=== PATIENT | male | born 1930 | race Caucasian/White ===

== ENCOUNTER 2017-04-20 12:00 | Inpatient (IN) | payer MEDICARE, BC ==
--- NOTE | 2017-04-20 12:27 | Emergency Department Record ---
History of Present Illness - General Chief Complaint: Shortness of breath Time Seen by Provider: 04/20/17 12:19 Source: Patient Mode of Arrival: Wheelchair Limitations: No limitations - History of Present Illness Initial Comments: The patient is here due to a 3 day hx of cough, SOB, and increased leg swelling. He denies any CP, back pain, or WILEY. The patient did fall 3 days ago at home in the bathroom and was unable to get up. He denies any head injury or LOC. Per family he has been more winded recently and having more difficulty walking. The family also noticed some bed sores 3 days ago. MD Complaint: Cough, Shortness of breath Onset/Timin -: Days(s), Unknown Improves With: Nothing Worsens With: Nothing Known History Of: Asthma, Congestive heart failure Associated Symptoms: Cough Treatments Prior to Arrival: None - Related Data Home Oxygen Therapy: No Home Medications Medication Instructions Recorded Confirmed Last Taken Amlodipine Besylate [Norvasc] 5 mg PO QAM 04/20/17 04/20/17 Unknown Citalopram Hydrobromide [Celexa] 1 mg PO QAM 04/20/17 04/20/17 Unknown Furosemide [Lasix] 20 mg PO BID 04/20/17 04/20/17 Unknown Glipizide 10 mg PO QAM 04/20/17 04/20/17 Unknown Losartan Potassium 50 mg PO DAILY 04/20/17 04/20/17 Unknown Metformin HCl 500 mg PO DAILY 04/20/17 04/20/17 Unknown Multivitamin [Multiple Vitamins] 1 each PO QAM 04/20/17 04/20/17 Unknown Potassium Chloride 10 meq PO BID 04/20/17 04/20/17 Unknown Terazosin HCl 5 mg PO DAILY 04/20/17 04/20/17 Unknown Warfarin Sodium [Coumadin] 5 mg PO DAILY 04/20/17 04/20/17 Unknown Allergies Allergy/AdvReac Type Severity Reaction Status Date / Time NO KNOWN DRUG ALLERGY Allergy no Uncoded 04/20/17 12:21 allergies Travel Screening - Travel/Exposure Within Last 30 Days Have you traveled within the last 30 days?: No Review of Systems Constitutional: Denies: Chills, Fever Eyes: Denies: Eye discharge ENT: Reports: Congestion Respiratory: Reports: Cough, Dyspnea Cardiovascular: Denies: Chest pain Gastrointestinal: Denies: Abdominal pain Genitourinary: Denies: Dysuria Musculoskeletal: Denies: Arthralgia Past Medical History - SOCIAL HISTORY Smoking Status: Never smoker Alcohol Use: None Drug Use: None - RESPIRATORY Hx Respiratory Disorders: Yes Hx Asthma: Yes - CARDIOVASCULAR Hx Cardio Disorders: Yes Hx CHF: Yes Hx Edema: Yes Hx Hypertension: Yes Comment:: afib - NEURO Hx Neuro Disorders: No - GI Hx GI Disorders: No - Hx Genitourinary Disorders: No - ENDOCRINE Hx Endocrine Disorders: Yes Hx Diabetes: Yes - MUSCULOSKELETAL Hx Musculoskeletal Disorders: No - PSYCH Hx Psych Problems: No - HEMATOLOGY/ONCOLOGY Hx Hematology/Oncology Disorders: No Family Medical History Any Significant Family History?: No Physical Exam - General General Appearance: Alert, Cooperative, No acute distress - Head Head exam: Atraumatic, Normocephalic, Normal inspection - Eye Eye exam: Normal appearance, PERRL - ENT Throat exam: Normal inspection. negative: Tonsillar erythema, Tonsillar exudate - Neck Neck exam: Normal inspection, Full ROM. negative: Tenderness - Respiratory Respiratory exam: Rhonchi (at the bases.). negative: Normal lung sounds bilaterally, Accessory muscle use, Respiratory distress - Cardiovascular Cardiovascular Exam: Normal heart sounds, Irregular rhythm. negative: Regular rate, Normal rhythm, Systolic murmur - GI/Abdominal GI/Abdominal exam: Soft, Normal bowel sounds. negative: Tenderness - Extremities Extremities exam: Pedal edema (3+ bilaterally.). negative: Normal inspection - Neurological Neurological exam: Alert. negative: Motor sensory deficit Course Vital Signs 04/20/17 12:16 Temperature 98.0 F Pulse Rate 85 Respiratory 22 Rate Blood Pressure 130/87 Pulse Ox 95 - Reevaluation(s) Reevaluation #1: The patient is doing well at this time. He denies any pain or discomfort. I did explain to him that he appears to be in CHF and that we do recommend hospital admission. The patient agrees to the plan. 04/20/17 13:51 Medical Decision Making - Data Complexity MDM Data: Labs Ordered and/or Reviewed, X-Ray Ordered and/or Reviewed, EKG Ordered and/or Reviewed - Lab Data Result diagrams: 04/20/17 12:50 04/20/17 12:50 - EKG Data -: EKG Interpreted by Me (Afib at 80's. Neg for acute ST-T changes.) - Radiology Data Radiology results: Report reviewed (CXR: CMG, possible CHF vs infiltrate. Head CT: Neg for any acute changes.) Disposition Disposition: Admit Clinical Impression: Congestive heart failure Qualifiers: Congestive heart failure type: unspecified congestive heart failure type Congestive heart failure chronicity: unspecified congestive heart failure chronicity Qualified Code(s): I50.9 - Heart failure, unspecified Disposition: Still a Patient at [facility] Decision to Admit: Admit from ER Decision to Admit Date: 04/20/17 Decision to Admit Time: 14:12 Accepting Physician: Mak Time Discussed w/Accepting Physician: 14:12 Condition: (2) Stable Time of Disposition: 14:12 Quality - Quality Measures Quality Measures: N/A - Blood Pressure Screening View Details: Yes Does Patient Have Any of the Following: No Blood Pressure Classification: Pre-Hypertensive BP Reading Systolic Measurement: 130 Diastolic Measurement: 87 Screening for High Blood Pressure: < Pre-Hypertensive BP, F/U Documented > [ [id number]] Pre-Hypertensive Follow-up Interventions: Referral to alternative/primary care provider.
[2017-04-20 12:54] LABS: BASO % 0.3 % (0-6); EOS % 0.2 % (0-6); GRAN % 81.4 % (47-80); HEMATOCRIT 34.4 % (42.0-52.0); HEMOGLOBIN 10.9 gm/dl (14.0-18.0); LYMPH % 7.6 % (16-45); MEAN CELL VOLUME 102.1 fl (81-97); MEAN CORPUSCULAR HEMOGLOBIN 32.3 pg (27-33); MEAN CORPUSCULAR HGB CONC 31.7 g/dl (32-36); MEAN PLATELET VOLUME 9.5 fl (7.4-10.4); MONO % 10.5 % (0-9); PLATELET COUNT 264 K/uL (130-400); RED BLOOD COUNT 3.37 M/uL (4.40-5.70); RED CELL DISTRIBUTION WIDTH 13.1 % (11.5-14.5); WHITE BLOOD COUNT W/O DIFF 11.4 K/uL (4.2-12.2)
[2017-04-20 13:06] LABS: INR 2.2; PARTIAL THROMBOPLASTIN TIME 42.6 SECONDS (24.5-39.1)
[2017-04-20 13:10] LABS: CREATININE 1.6 mg/dL (0.7-1.2)
[2017-04-20 13:18] LABS: CKMB 5.6 ng/mL (<6.73)
[2017-04-20] MEDS ORDERED: FUROSEMIDE IV 40MG/4ML VIAL IVP ONE (13:29)
[2017-04-20] MEDS ORDERED: CEFTRIAXONE SODIUM 1 GM in 0.9 % SODIUM CHLORIDE 100ML 100 ML IVPB ONE (14:11)
[2017-04-20 14:49] LABS: URINE APPEARANCE CLEAR; URINE BILIRUBIN NEGATIVE (NEGATIVE); URINE BLOOD TRACE-L (NEGATIVE); URINE COLOR YELLOW; URINE GLUCOSE (UA) NEGATIVE (NEGATIVE); URINE KETONE NEGATIVE (NEGATIVE); URINE LEUKOCYTE ESTERASE NEGATIVE (NEGATIVE); URINE NITRITE NEGATIVE (NEGATIVE); URINE PROTEIN NEGATIVE (NEGATIVE); URINE UROBILINOGEN 0.2 E.U./dL (0.20 - 1.00)
[2017-04-20 14:59] LABS: URINE EPITHELIAL CELLS NONE SEEN (FEW); URINE RBC RARE (NONE SEEN); URINE WBC NONE SEEN (0-2/hpf)
--- NOTE | 2017-04-20 16:12 | History & Physical ---
History of Present Illness - Date of Service Date of Service for History & Physical: 04/20/17 - History of Present Illness History of Present Illness: Mr. Metz is an 86 y/o male with history of heart failure, atrial fibrillation, rate controlled and diabetes mellitus who comes in after being found to be severely edematous and having increasing shortness of breath over the past several days. The patient lives alone and is reportedly sitting in his chair most of the day and has not been very compliant with his medication regimen. He is had a fall in his bathroom a few days ago injuring his toes but had no other injury. The patient has a home visiting nurse who assists him with some of his daily activities and he gets daily delivery from [employer].The patient denies chest pain, cough, fever, chills or headache. Travel Screening - Travel/Exposure Within Last 30 Days Have you traveled within the last 30 days?: No Review of Systems Constitutional: Denies: Chills, Fever Eyes: Denies: Eye discharge ENT: Reports: Congestion Respiratory: Reports: Cough, Dyspnea Cardiovascular: Denies: Chest pain Gastrointestinal: Denies: Abdominal pain Genitourinary: Denies: Dysuria Musculoskeletal: Denies: Arthralgia Past Medical History - SOCIAL HISTORY Smoking Status: Never smoker Alcohol Use: None Drug Use: None - RESPIRATORY Hx Respiratory Disorders: Yes Hx Asthma: Yes - CARDIOVASCULAR Hx Cardio Disorders: Yes Hx CHF: Yes Hx Edema: Yes Hx Hypertension: Yes Comment:: afib - NEURO Hx Neuro Disorders: No - GI Hx GI Disorders: No - Hx Genitourinary Disorders: No - ENDOCRINE Hx Endocrine Disorders: Yes Hx Diabetes: Yes - MUSCULOSKELETAL Hx Musculoskeletal Disorders: No - PSYCH Hx Psych Problems: No - HEMATOLOGY/ONCOLOGY Hx Hematology/Oncology Disorders: No Family Medical History Any Significant Family History?: No H&P Meds/Allergies - Allergies Allergies: Allergies Allergy/AdvReac Type Severity Reaction Status Date / Time NO KNOWN DRUG ALLERGY Allergy no Uncoded 04/20/17 12:21 allergies - Home Medications Home Medications Medication Instructions Recorded Confirmed Last Taken Amlodipine Besylate [Norvasc] 5 mg PO QAM 04/20/17 04/20/17 Unknown Citalopram Hydrobromide [Celexa] 1 mg PO QAM 04/20/17 04/20/17 Unknown Furosemide [Lasix] 20 mg PO BID 04/20/17 04/20/17 Unknown Glipizide 10 mg PO QAM 04/20/17 04/20/17 Unknown Losartan Potassium 50 mg PO DAILY 04/20/17 04/20/17 Unknown Metformin HCl 500 mg PO DAILY 04/20/17 04/20/17 Unknown Multivitamin [Multiple Vitamins] 1 each PO QAM 04/20/17 04/20/17 Unknown Potassium Chloride 10 meq PO BID 04/20/17 04/20/17 Unknown Terazosin HCl 5 mg PO DAILY 04/20/17 04/20/17 Unknown Warfarin Sodium [Coumadin] 5 mg PO DAILY 04/20/17 04/20/17 Unknown Physical Exam - General General Appearance: Alert, Cooperative, No acute distress Limitations: No limitations - Head Head exam: Atraumatic, Normocephalic, Normal inspection - Eye Eye exam: Normal appearance, PERRL - ENT Throat exam: Normal inspection. negative: Tonsillar erythema, Tonsillar exudate - Neck Neck exam: Normal inspection, Full ROM. negative: Tenderness - Respiratory Respiratory exam: Rhonchi (at the bases.). negative: Normal lung sounds bilaterally, Accessory muscle use, Respiratory distress - Cardiovascular Cardiovascular Exam: Normal heart sounds, Irregular rhythm. negative: Regular rate, Normal rhythm, Systolic murmur Peripheral Pulses: 0: Dorsalis Pedis (R), Dorsalis Pedis (L), 2+: Radial (R), Radial (L) - GI/Abdominal GI/Abdominal exam: Soft, Normal bowel sounds. negative: Tenderness - Extremities Extremities exam: Pedal edema (3+ bilaterally.). negative: Normal inspection - Neurological Neurological exam: Alert, CN II-XII intact, Oriented X3. negative: Motor sensory deficit Results - Labs Result Diagrams: 04/20/17 12:50 04/20/17 12:50 VTE H&P Assessment - Risk for VTE Risk for VTE: Yes Risk Level: High Risk Assessment Date: 04/20/17 Risk Assessment Time: 16:13 VTE Orders Placed or Will Be Placed: Yes Plan - Inpatient Certification Inpatient Certification: Admit to inpatient care: Based on my medical assessment, after consideration of patient's risk factors (age, co-morbidities and patient presenting symptoms and acuity), I expect that this patient will remain in the hospital greater than or equal to two midnights and that the services needed warrant inpatient care because: Patient Risk Factors: Fall Estimated length of stay: 3 days The patient may reasonably be expected to be discharged or transferred to a hospital within 96 hours after admission to [facility]. Services needed: Post hospital care (if known): Cardiac rehab I certify that my determination is in accordance with my understanding of Medicare requirements for reasonable and necessary inpatient services. - Detailed Diagnosis and Plan (1) Edema Current Visit: Yes Status: Acute Base Code: R60.9 - EDEMA, UNSPECIFIED Comment: - bilateral lower ext edema, pitting +3, resulting in debility - Lasix 60mg given in ED, 60mg QD IV, to PO dosing. - elevate legs, and compression stalkings, ambulate with assistance (2) Congestive heart failure Current Visit: Yes Status: Acute Qualifiers: Congestive heart failure type: unspecified congestive heart failure type Congestive heart failure chronicity: unspecified congestive heart failure chronicity Qualified Code(s): I50.9 - Heart failure, unspecified Base Code: I50.9 - HEART FAILURE, UNSPECIFIED Comment: - CXR - shows congestion, no recent 2D echo, EF ? - BNP 3,496, Trop 0.17 trending, fluid restriction, daily I/Os - ECG: a fib - 80-90s, no acute ST-T wave changes, telemetry monitoring, maintain sats > 92% - needs ASA, statin, BB, currently on ARB (3) Atrial fibrillation Current Visit: Yes Status: Acute Base Code: I48.91 - UNSPECIFIED ATRIAL FIBRILLATION Comment: - ECG: a fib w/ vent rate in 80-90s, no acute ST-T wave changes. - not on BB, anticoagulated with Warfarin 5mg daily, pharmacy to dose. - INR therapeutic at 2.2 (4) Diabetes mellitus type 2 in obese Current Visit: Yes Status: Acute Base Code: E11.69 - TYPE 2 DIABETES MELLITUS WITH OTHER SPECIFIED COMPLICATION; E66.9 - OBESITY, UNSPECIFIED Comment: - serum glucose 272 - hold home meds: Glipizide 10mg and Metformin 500mg daily - insulin low dose sliding scale, ACHS, Hba1c, Diabetic diet ordered (5) Hypertension Current Visit: Yes Status: Acute Base Code: I10 - ESSENTIAL (PRIMARY) HYPERTENSION Comment: - BP 124/84 - resume Norvasc 5mg and Losartan 50mg QD (6) Chronic kidney disease Current Visit: Yes Status: Acute Base Code: N18.9 - CHRONIC KIDNEY DISEASE, UNSPECIFIED Comment: - BUN/Cr: 48/1.6, baseline unknown - hold metformin, avoid nephrotoxic agents - recheck labs in the am (7) BPH (benign prostatic hyperplasia) Current Visit: Yes Status: Acute Base Code: N40.0 - BENIGN PROSTATIC HYPERPLASIA WITHOUT LOWER URINRY TRACT SYMP Comment: - resume Terazosin 5mg (8) DVT prophylaxis Current Visit: Yes Status: Acute Base Code: [id number] - Comment: - on therapeutic dosing of Warfarin. (9) Code status needs review Current Visit: Yes Status: Acute Base Code: [id number] - Comment: - will address with the patient and family in the morning. - Disposition - SW required for rehab planning on D/C. PT/OT to follow daily.
[2017-04-20] MEDS ORDERED: ACETAMINOPHEN 500 MG TABLET PO PRN (16:20)
[2017-04-20] MEDS: LOSARTAN POTASSIUM 25 MG TABLET PO SCH (17:30)
[2017-04-20] MEDS: TERAZOSIN HCL 1 MG CAPSULE PO SCH (17:33)
[2017-04-20] MEDS: NOVOLOG FLEXPEN (INSULIN ASPART) 100 UNITS/ML SQ SCH (17:41)
[2017-04-20 21:20] LABS: CKMB 5.2 ng/mL (<6.73)
[2017-04-20] MEDS ORDERED: FLU VAC QS 2017-18 (INPT, 6MO+) 60MCG/0.5ML IM ONE (22:30)
[2017-04-21] MEDS: CEFTRIAXONE SODIUM 1 GM in 0.9 % SODIUM CHLORIDE 100ML 100 ML IVPB SCH ×2 (02:51→15:11)
[2017-04-21 05:20] LABS: CKMB 4.6 ng/mL (<6.73)
[2017-04-21 05:37] LABS: BASO % 0.3 % (0-6); EOS % 0.8 % (0-6); HEMATOCRIT 33.3 % (42.0-52.0); HEMOGLOBIN 10.5 gm/dl (14.0-18.0); LYMPH % 9.7 % (16-45); MEAN CELL VOLUME 102.8 fl (81-97); MEAN CORPUSCULAR HEMOGLOBIN 32.4 pg (27-33); MEAN CORPUSCULAR HGB CONC 31.5 g/dl (32-36); MEAN PLATELET VOLUME 9.6 fl (7.4-10.4); MONO % 11.2 % (0-9); PLATELET COUNT 263 K/uL (130-400); RED BLOOD COUNT 3.24 M/uL (4.40-5.70); RED CELL DISTRIBUTION WIDTH 12.8 % (11.5-14.5); WHITE BLOOD COUNT W/O DIFF 11.6 K/uL (4.2-12.2)
[2017-04-21 06:32] LABS: CREATININE 1.4 mg/dL (0.7-1.2)
--- NOTE | 2017-04-21 07:20 | CT SCAN REPORT ---
EXAM: CT OF THE HEAD WITHOUT CONTRAST HISTORY: FELL ONE DAY AGO. COUMADIN THERAPY. TECHNIQUE: Routine noncontrast CT examination of the head was obtained. Comparison: None. FINDINGS: There is moderate dilatation of the subarachnoid spaces associated with mild ventriculomegaly consistent with generalized atrophy. Mild periventricular and subcortical white matter lucencies are scattered in each cerebral hemisphere symmetrically. These are nonspecific, but likely areas of chronic small vessel ischemia. Benign bilateral basal ganglia calcification is present. No other area of abnormally increased or decreased attenuation is noted throughout the brain substance. No abnormal extraaxial fluid collection nor skull fracture is seen. No cephalohematoma visualized. Post cataract surgery changes are noted on the left. The orbits are otherwise unremarkable. There is mild mucosal thickening and several bilateral ethmoid air cells. The visualized paranasal sinuses and mastoid air cells are otherwise clear. IMPRESSION: 1. GENERALIZED ATROPHY WITH MILD VENTRICULOMEGALY. 2. NO CT EVIDENCE OF ACUTE MAJOR VESSEL INFARCT, INTRACRANIAL HEMORRHAGE, MASS , NOR SKULL FRACTURE. 3. MILD WHITE MATTER LUCENCIES SCATTERED IN EACH CEREBRAL HEMISPHERE CONSISTENT WITH CHRONIC SMALL VESSEL ISCHEMIA. 4. MILD MUCOSAL THICKENING IN MULTIPLE BILATERAL ETHMOID AIR CELLS. JOB NUMBER: [id number] [facility]
--- NOTE | 2017-04-21 07:24 | RADIOLOGY REPORT ---
EXAM: CHEST, TWO VIEWS HISTORY: CONGESTION WITH WHEEZING FOR TWO TO THREE DAYS. TECHNIQUE: Upright AP and lateral views of the chest were obtained. Comparison: None. FINDINGS: The heart projects borderline to mildly enlarged without pulmonary venous hypertension. A calcified granuloma is noted in the right lower lobe. Mixed primarily linear opacities are scattered within the lung bases likely relating to atelectasis or scarring. No lung consolidation, costophrenic angle blunting or pneumothorax. There are degenerative changes scattered within the visualized spine. Minimal patchy air space disease within the lingula is possible. IMPRESSION: 1. PATCHY PREDOMINANTLY LINEAR OPACITIES IN THE LUNG BASES CONSISTENT WITH ATELECTASIS OR SCARRING. 2. 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 3. POSSIBLE MINIMAL PATCHY AIR SPACE DISEASE WITHIN THE LINGULA CONSISTENT WITH ATELECTASIS OR LESS LIKELY INFILTRATE. 4. TORTUOUS ATHEROSCLEROTIC THORACIC AORTA. JOB NUMBER: [id number] [facility]
[2017-04-21] MEDS ORDERED: ENOXAPARIN 40 MG/0.4 ML SYR SQ SCH (10:00)
[2017-04-21] MEDS: NOVOLOG FLEXPEN (INSULIN ASPART) 100 UNITS/ML SQ SCH ×4 (10:18→19:30)
[2017-04-21 10:24] LABS: INR 2.33; PROTHROMBIN TIME (PATIENT) 25.4 SECONDS (9.5-12.1)
--- NOTE | 2017-04-21 10:56 | Physician Progress Note ---
Subjective - Date Date of Physician Progress Note: 04/21/17 - Subjective Subjective Comment: The patient is awake, alert and oriented this morning without complaint. He is is sitting in the chair at bedside. Location: Abdomen Radiation: Non-Radiating Severity scale (1-10): 5 Consistency: Intermittent (when he coughs ) Objective - Vital Signs Vital Signs: Vital Signs - Last 24 Hrs Temp Pulse Pulse Pulse Resp BP BP 04/21/17 09:34 97.2 F L 92 H 20 112/59 04/21/17 06:05 04/21/17 06:00 98.4 F 84 18 137/65 04/21/17 02:00 97.6 F 78 20 121/61 04/20/17 21:34 98.2 F 77 91 H 18 110/57 04/20/17 21:00 81 04/20/17 20:50 79 04/20/17 18:20 97.5 F L 90 18 108/56 04/20/17 17:34 88 16 04/20/17 16:20 97.5 F L 90 18 135/65 04/20/17 16:17 79 20 124/84 Pulse Ox 04/21/17 09:34 96 04/21/17 06:05 98 04/21/17 06:00 98 04/21/17 02:00 96 04/20/17 21:34 97 04/20/17 21:00 04/20/17 20:50 96 04/20/17 18:20 98 04/20/17 17:34 92 L 04/20/17 16:20 98 04/20/17 16:17 99 - General General Appearance: Alert, Cooperative, No acute distress Limitations: No limitations - Head Head exam: Atraumatic, Normocephalic, Normal inspection - Eye Eye exam: Normal appearance, PERRL - ENT Throat exam: Normal inspection. negative: Tonsillar erythema, Tonsillar exudate - Neck Neck exam: Normal inspection, Full ROM. negative: Tenderness - Respiratory Respiratory exam: Rhonchi (at the bases.). negative: Normal lung sounds bilaterally, Accessory muscle use, Respiratory distress - Cardiovascular Cardiovascular Exam: Normal heart sounds, Irregular rhythm. negative: Regular rate, Normal rhythm, Systolic murmur Peripheral Pulses: 0: Dorsalis Pedis (R), Dorsalis Pedis (L), 2+: Radial (R), Radial (L) - GI/Abdominal GI/Abdominal exam: Soft, Normal bowel sounds. negative: Tenderness - Extremities Extremities exam: Pedal edema (3+ bilaterally.). negative: Normal inspection - Neurological Neurological exam: Alert, CN II-XII intact, Oriented X3. negative: Motor sensory deficit - Psychiatric Psychiatric exam: Normal affect, Normal mood - Skin Skin exam: Other (dressing over skin breakdown on sacral/coccyx) Assessment and Plan - Assessment and Plan (1) Edema Current Visit: Yes Status: Acute Base Code: R60.9 - EDEMA, UNSPECIFIED Comment: - bilateral lower ext edema, pitting +3, resulting in debility - Lasix 60mg given in ED, 60mg QD IV, to PO dosing. - elevate legs, and compression stalkings, ambulate with assistance (2) Congestive heart failure Current Visit: Yes Status: Acute Qualifiers: Congestive heart failure type: unspecified congestive heart failure type Congestive heart failure chronicity: unspecified congestive heart failure chronicity Qualified Code(s): I50.9 - Heart failure, unspecified Base Code: I50.9 - HEART FAILURE, UNSPECIFIED Comment: - CXR - shows congestion, no recent 2D echo, EF ? - BNP 3,496, Trop 0.015-->0.017 trending, fluid restriction, daily I/Os - ECG: a fib - 80-90s, no acute ST-T wave changes, telemetry monitoring, maintain sats > 92% - needs ASA, statin, BB, currently on ARB (3) Atrial fibrillation Current Visit: Yes Status: Acute Base Code: I48.91 - UNSPECIFIED ATRIAL FIBRILLATION Comment: - ECG: a fib w/ vent rate in 80-90s, no acute ST-T wave changes. - not on BB, anticoagulated with Warfarin 5mg daily, pharmacy to dose. - INR therapeutic at 2.2 -->2.3 (4) Diabetes mellitus type 2 in obese Current Visit: Yes Status: Acute Base Code: E11.69 - TYPE 2 DIABETES MELLITUS WITH OTHER SPECIFIED COMPLICATION; E66.9 - OBESITY, UNSPECIFIED Comment: - serum glucose 272 -->188 - hold home meds: Glipizide 10mg and Metformin 500mg daily - insulin low dose sliding scale, ACHS, Hba1c, Diabetic diet ordered (5) Hypertension Current Visit: Yes Status: Acute Base Code: I10 - ESSENTIAL (PRIMARY) HYPERTENSION Comment: - BP 124/84 - resume Norvasc 5mg and Losartan 50mg QD (6) Chronic kidney disease Current Visit: Yes Status: Acute Base Code: N18.9 - CHRONIC KIDNEY DISEASE, UNSPECIFIED Comment: - BUN/Cr: 48/1.6, baseline unknown - hold metformin, avoid nephrotoxic agents - recheck labs in the am (7) BPH (benign prostatic hyperplasia) Current Visit: Yes Status: Acute Base Code: N40.0 - BENIGN PROSTATIC HYPERPLASIA WITHOUT LOWER URINRY TRACT SYMP Comment: - resume Terazosin 5mg (8) DVT prophylaxis Current Visit: Yes Status: Acute Base Code: [id number] - Comment: - on therapeutic dosing of Warfarin. (9) Code status needs review Current Visit: Yes Status: Acute Base Code: [id number] - Comment: - will address with the patient and family in the morning. - Disposition Disposition: - SW required for rehab planning on D/C. PT/OT to follow daily. Results - Labs Result Diagrams: 04/21/17 05:00 04/21/17 05:00 Labs Last 24 Hours: Laboratory Results - last 24 hr 04/20/17 04/20/17 04/20/17 16:30 17:27 20:55 WBC RBC Hgb Hct MCV MCH MCHC RDW Plt Count MPV Gran % Lymphocytes % Monocytes % Eosinophils % Basophils % PT INR Sodium Potassium Chloride Carbon Dioxide Anion Gap BUN Creatinine Estimated GFR POC Glucose Cancelled 226 H Random Glucose Hemoglobin A1c Calcium CK-MB (CK-2) 5.2 Troponin T 0.015 H 04/21/17 04/21/17 04/21/17 04:55 05:00 05:00 WBC 11.6 RBC 3.24 L Hgb 10.5 L Hct 33.3 L MCV 102.8 H MCH 32.4 MCHC 31.5 L RDW 12.8 Plt Count 263 MPV 9.6 Gran % 78.0 Lymphocytes % 9.7 L Monocytes % 11.2 H Eosinophils % 0.8 Basophils % 0.3 PT 25.4 H INR 2.33 Sodium Potassium Chloride Carbon Dioxide Anion Gap BUN Creatinine Estimated GFR POC Glucose Random Glucose Hemoglobin A1c Calcium CK-MB (CK-2) 4.6 Troponin T 0.017 H 04/21/17 04/21/17 05:00 05:00 WBC RBC Hgb Hct MCV MCH MCHC RDW Plt Count MPV Gran % Lymphocytes % Monocytes % Eosinophils % Basophils % PT INR Sodium 141 Potassium 4.2 Chloride 102 Carbon Dioxide 26.0 Anion Gap 13.0 BUN 43 H Creatinine 1.4 H Estimated GFR 51 POC Glucose Random Glucose 188 H Hemoglobin A1c 8.90 H Calcium 8.5 L CK-MB (CK-2) Troponin T DVT/PE Assessment - Risk for VTE Risk for VTE: No Risk Level: High Risk Assessment Date: 04/20/17 Risk Assessment Time: 16:13 VTE Orders Placed or Will Be Placed: Yes - Active Medicaitons Current Medications: Current Medications Acetaminophen (Tylenol 500mg Tab) 500 mg PO Q6H PRN PRN Reason: PAIN/TEMP Amlodipine Besylate (Norvasc) [facility]ILYWM [facility] Citalopram Hydrobromide (Celexa) 20 mg PO DAILYWM [facility] Furosemide (Lasix Iv) 60 mg IVP DAILY [facility] Glipizide (Glucotrol) 10 mg PO DAILYWM [facility] Ceftriaxone Sodium 1 gm/ (Sodium Chloride) 100 mls @ 200 mls/hr IVPB Q12H [facility] Stop: 04/26/17 02:31 Last Admin: 04/21/17 02:51 Dose: 200 mls/hr Insulin Aspart (Novolog Flexpen) 1 unit SQ TIDINS [facility] PRN Reason: Protocol Last Admin: 04/21/17 10:18 Dose: 8 unit Losartan Potassium (Cozaar) 50 mg PO 1730 [facility] Last Admin: 04/20/17 17:30 Dose: 50 mg Terazosin HCl (Hytrin) 5 mg PO 1730 [facility] Last Admin: 04/20/17 17:33 Dose: 5 mg Warfarin Sodium (Coumadin) 5 mg PO DAILYWM [facility] AMI Plan - Labs Result Diagrams: 04/21/17 05:00 04/21/17 05:00
[2017-04-21] MEDS: WARFARIN 5 MG TAB PO SCH (11:54)
[2017-04-21] MEDS: CITALOPRAM 20 MG TABLET PO SCH (11:54)
[2017-04-21] MEDS: GLIPIZIDE 5 MG TABLET PO SCH (11:55)
[2017-04-21] MEDS: AMLODIPINE BESYLATE 5MG TAB PO SCH (11:56)
[2017-04-21] MEDS: FUROSEMIDE IV 40MG/4ML VIAL IVP SCH (11:57)
--- NOTE | 2017-04-21 14:55 | Rehab Evaluation ---
Patient Information - Patient Information Diagnosis: CHF Ordered Treatment: PT Evaluate and Treat Status: Initial Evaluation History: Detail (The patient presented to ED with a 3 day hx of shortness of breath and coughing. The patient had fallen 3 days ago in the bathroom and was unable to get up.) Past Medical/Surgical Hx: PAST MEDICAL/SURGICAL HISTORY Past Surgical History Cholecysectomy PMH - Respiratory Hx Respiratory Disorders Yes Hx Asthma Yes PMH - Cardiovascular Hx Cardiovascular Disorders Yes Hx Congestive Heart Failure Yes Hx Edema Yes Hx Hypertension Yes Comment: afib PMH - Neuro Hx Neurological Disorders No PMH - GI Hx Gastrointestinal Disorders No PMH - Hx Genitourinary Disorders No PMH - Endocrine Hx Endocrine Disorders Yes Hx Diabetes Yes PMH - Musculoskeletal Hx Musculoskeletal Disorders No PMH - Psych Hx Psychiatric Problems No PMH - Hematology/Oncology Hx Hematology/Oncology No Disorders Premorbid Status: Detail (According to the patient he was ambulatory with a four wheeled walker and was able to complete all ADL's independently.) Social History: Detail (The patient lives alone in a one story home without steps at the enterance. The patient's bathroome is equipped with a walk in shower with a seat and an elevated toilet seat. No grab bars were present. The patient receives meals on wheels. The patient reports he has a helper come in 2 to 3 times a week to clean. The patient completes his own laundry. The patient has a hospital bed, two four wheeled walkers, a standard cane and a processing mgr.) Precautions: [place], Fall - Time With Patient Total Time Spent With Patient (Min): 30 Treatment Procedures: Detail (Initial Evaluation.) Subjective Information - Subjective Information Per Patient (The patient denied any pain or frequent falls. The patient was insistant on going home and receiving home PT and OT." I'm better in my own home.") Objective Data - Mental Status Patient Orientation: Oriented x3 - Visual Perception Appears within normal limits for therapeutic activities - ROM Not within normal limits (The patient's LE AROM is WFL.) - Strength/Tone Not within normal limits (The patient's bilateral hip flexion is 3-/5, hip abductors, adductors 4-/5, quads and hamstrings 4/4, ankle musculatue 4/5. Refer to OT note for UE strength.) - Transfers Independent (The patient was independent with supine to and from sit transfer.) - Balance Balance Sitting: Fair Balance Standing: Poor (The patient was unable to stand without the support of the walker or a surface. The patient hung onto a grab bar for toileting and with support of forearms when washing hands.) - Gait Detail (The patient ambulated with wheeled walker a distance of 13 feet x 2 with supervision for safety due to forward leaning posture and unsteadiness at times.) - Special Tests Yes (Increased edema was noted bilaterallly in both LE's.) Therapy Assessment - Therapy Assessment Detail (The patient has balance deficits and bilateral LE weakness which is effecting the patient's ability to complete mobility. The patient requires supervision with ambulation for safety. Subacute Rehab to improve functional status, improve LE stength and balance is recommended. The patient however voiced his preference for Home Care OT/PT. If the patient returns to home upon discharge 24 hour supervision is recommended initially to monitor the patient's safety with mobility.) Problem List - Problem List Physical Therapy Problem List: Detail (1) Decreased balance in both sitting and standing 2) Decreased LE strength 3) Decreased ability to complete sustained physical activity 4) Supervision with ambulation with assistive device.) Goals - Goals Physical Therapy Goals: 1) The patient will ambulate independently with use of assistive device a distance of 50 feet plus. 2) Increase LE strength 1/3 muscle grade. 3) Improve balance to Fair level, so the patient is able to complete functional activities without LOB. Prognosis - Prognosis Moderate Plan - Plan Physical Therapy Plan: PT daily M-F for gait training, balance exercises, LE strengthening exercises.
--- NOTE | 2017-04-21 14:57 | Rehab Evaluation ---
Patient Information - Patient Information Diagnosis: CHF, fall Ordered Treatment: OT Evaluate and Treat Status: Initial Evaluation Surgery: No History: Detail (Pt. reported he fell in the bathroom, and his call button didn' t work. His son came to visit and found him on the floor.) Past Medical/Surgical Hx: PAST MEDICAL/SURGICAL HISTORY Past Surgical History Cholecysectomy PMH - Respiratory Hx Respiratory Disorders Yes Hx Asthma Yes PMH - Cardiovascular Hx Cardiovascular Disorders Yes Hx Congestive Heart Failure Yes Hx Edema Yes Hx Hypertension Yes Comment: afib PMH - Neuro Hx Neurological Disorders No PMH - GI Hx Gastrointestinal Disorders No PMH - Hx Genitourinary Disorders No PMH - Endocrine Hx Endocrine Disorders Yes Hx Diabetes Yes PMH - Musculoskeletal Hx Musculoskeletal Disorders No PMH - Psych Hx Psychiatric Problems No PMH - Hematology/Oncology Hx Hematology/Oncology No Disorders Premorbid Status: Detail (Pt. lives at home alone in a single story house with no stairs (including entry) and no basement. Pt. reported being independent with all self-care such as dressing and bathing, and some household responsibilities such as laundry. Pt. receives meals on wheels, and has a lady who comes 2-3x/week to assist with house cleaning. Pt. has hx of CHF with chronic edema in BLE. Pt. reported he has a hospital-style bed in the living room and an easy chair. He sits/sleeps in bed or chair for a few hours, then walks to the bathroom or kitchen or transfers to the other furniture before sitting/sleeping again, etc. Pt. ambulated with a 4WW, and used a population geneticist to parts picker floor level items. Pt. enjoys being outside in the summer, and previously enjoyed camping & gardening. Pt.'s bathroom has a walk-in shower with HH shower head and curtain. Pt. has a shower chair available, but reports standing to bathe (prefers). Pt. reports toilet is standard, but is slightly higher than typical seats. There are no grab bars in the bathroom.) Social History: Detail (Pt.'s adult children visit regularly. (please see premorbid status for more details).) Precautions: [place], Fall, Cardiac (fluid restrictions d/t CHF) - Time With Patient Total Time Spent With Patient (Min): 30 Objective Data - Mental Status Patient Orientation: Oriented x3 - Visual Perception Appears within normal limits for therapeutic activities - ROM Not within normal limits (BUE shd flex approx. 140 degrees, and RUE supination lacks approx. 20 degrees. Pt. reports difficulty with Ervin. shd ext & IR (i.e. reaching back pocket), but was able to demo. WFL. All other BUE WNL.) - Strength/Tone Within normal limits (BUE WNL MMT 5/5.) - Coordination Appears within normal limits for therapeutic activities - Bed Mobility Independent - Transfers Needs Assist (Pt. required min assist sit<>stand from EOB to walker. Pt. SBA from firm chair to walker.) - Balance Balance Sitting: Fair (Pt. required guarding while testing BLE, seated in a firm chair; requires BUE support. Pt. was feaful of falling and had difficulty sitting EOB (soft surface) without BUE support.) Balance Standing: Poor (Pt. was unable to let go of walker with 1 UE while standing. Pt. is fearful of falling. Pt. reports he has had multiple close calls of falling backwards when he lets go of his walker, even with just 1 hand. ) - Sensation Intact (BUE fingertips light touch intact.) - ADL's/IADL's Detail (Pt. was unable to reach lower extremities to don sock. Pt. required SBA during functional mobility from bed to bathroom and standing to use toilet d/t poor standing balance. Pt. SOB with minimal activities. Pt. reports hx of incontinence, and is embarrassed to leave home for fear of accidents, but declined to wear brief. Pt. was left with call light and bedside tray within reach, and educ. was provided on how to use call light.) Therapy Assessment - Therapy Assessment Detail (Recommend [facility] to maximize safety and independence with self care, and to increase activity tolerance. Pt. states he will only participate in home care , and doesn't want to stay longer in hospital or go to [facility]. If pt. d/c home, recommend 24 hour supervision initially, and OT home services. It should be ensured that pt's home call button service is working and pt. is educ. how to use it. Unsure how pt. has been able to safely complete LB dressing and bathing at home. Pt. may benefit from additional educ. regarding prevention of bed sores and movement/staying active.) Problem List - Problem List Occupational Therapy Problem List: Detail (1) Decreased safety with self-care ADL's 2) Decreased independence with self-care ADL's 3) Poor standing balance and fair sitting balance 4) Decreased activity tolerance) Prognosis - Prognosis Moderate Plan - Plan Occupational Therapy Plan: Provide in-pt. OT services 2-4x's/week M- during typical rehab business hours during hospital stay to maximize safety and independence with self-care ADL skills, and improve activity tolerance to be able to complete daily ADL routine.
[2017-04-21] MEDS: TERAZOSIN HCL 1 MG CAPSULE PO SCH (18:09)
[2017-04-21] MEDS: LOSARTAN POTASSIUM 25 MG TABLET PO SCH (18:09)
[2017-04-22] MEDS: CEFTRIAXONE SODIUM 1 GM in 0.9 % SODIUM CHLORIDE 100ML 100 ML IVPB SCH (01:42)
[2017-04-22 08:00] LABS: BASO % 0.3 % (0-6); EOS % 2.5 % (0-6); GRAN % 68.5 % (47-80); HEMATOCRIT 33.7 % (42.0-52.0); HEMOGLOBIN 10.5 gm/dl (14.0-18.0); LYMPH % 15.8 % (16-45); MEAN CELL VOLUME 103.1 fl (81-97); MEAN CORPUSCULAR HEMOGLOBIN 32.1 pg (27-33); MEAN CORPUSCULAR HGB CONC 31.2 g/dl (32-36); MEAN PLATELET VOLUME 8.9 fl (7.4-10.4); MONO % 12.9 % (0-9); PLATELET COUNT 267 K/uL (130-400); RED BLOOD COUNT 3.27 M/uL (4.40-5.70); WHITE BLOOD COUNT W/O DIFF 9.5 K/uL (4.2-12.2)
[2017-04-22 08:12] LABS: CREATININE 1.6 mg/dL (0.7-1.2)
[2017-04-22] MEDS: NOVOLOG FLEXPEN (INSULIN ASPART) 100 UNITS/ML SQ SCH ×3 (09:23→17:33)
[2017-04-22 09:52] LABS: INR 2.9; PROTHROMBIN TIME (PATIENT) 31.7 SECONDS (9.5-12.1)
[2017-04-22] MEDS: FUROSEMIDE IV 40MG/4ML VIAL IVP SCH (10:36)
[2017-04-22] MEDS: CITALOPRAM 20 MG TABLET PO SCH (10:36)
[2017-04-22] MEDS: WARFARIN 5 MG TAB PO SCH (10:37)
[2017-04-22] MEDS: GLIPIZIDE 5 MG TABLET PO SCH (10:37)
[2017-04-22] MEDS: AMLODIPINE BESYLATE 5MG TAB PO SCH (10:38)
[2017-04-22] MEDS: FUROSEMIDE 40 MG TABLET PO SCH (13:13)
--- NOTE | 2017-04-22 14:32 | Physician Progress Note ---
Subjective - Date Date of Physician Progress Note: 04/22/17 - Subjective Subjective Comment: The patient is awake, alert and oriented this morning in bedside chair. He says that he feels like his energy has improved and that he is able to get up and use the restroom with assistance of the walker. Objective - Vital Signs Vital Signs: Vital Signs - Last 24 Hrs Temp Pulse Pulse Pulse Resp BP Pulse Ox 04/22/17 12:00 97.8 F 81 18 124/70 93 L 04/22/17 09:00 86 22 04/22/17 08:00 98.5 F 90 18 119/55 94 L 04/22/17 05:03 76 16 94 L 04/22/17 04:00 92 H 18 123/64 90 L 04/22/17 00:00 98 H 18 91/52 93 L 04/21/17 22:51 84 16 94 L 04/21/17 21:00 18 04/21/17 20:00 97.2 F L 81 18 121/66 97 - General General Appearance: Alert, Cooperative, No acute distress Limitations: No limitations - Head Head exam: Atraumatic, Normocephalic, Normal inspection - Eye Eye exam: Normal appearance, PERRL - ENT Throat exam: Normal inspection. negative: Tonsillar erythema, Tonsillar exudate - Neck Neck exam: Normal inspection, Full ROM. negative: Tenderness - Respiratory Respiratory exam: Rhonchi (at the bases.). negative: Normal lung sounds bilaterally, Accessory muscle use, Respiratory distress - Cardiovascular Cardiovascular Exam: Normal heart sounds, Irregular rhythm. negative: Regular rate, Normal rhythm, Systolic murmur Peripheral Pulses: 0: Dorsalis Pedis (R), Dorsalis Pedis (L), 2+: Radial (R), Radial (L) - GI/Abdominal GI/Abdominal exam: Soft, Normal bowel sounds. negative: Tenderness - Extremities Extremities exam: Pedal edema (3+ bilaterally.). negative: Normal inspection - Neurological Neurological exam: Alert, CN II-XII intact, Oriented X3. negative: Motor sensory deficit - Psychiatric Psychiatric exam: Normal affect, Normal mood - Skin Skin exam: Other (dressing over skin breakdown on sacral/coccyx) Assessment and Plan - Assessment and Plan (1) Edema Current Visit: Yes Status: Acute Base Code: R60.9 - EDEMA, UNSPECIFIED Comment: - bilateral lower ext edema, pitting +3, resulting in debility - improving - Lasix 60mg changedto LAsix 40mg PO QD - elevate legs, ambulate with assistance (2) Congestive heart failure Current Visit: Yes Status: Acute Qualifiers: Congestive heart failure type: unspecified congestive heart failure type Congestive heart failure chronicity: unspecified congestive heart failure chronicity Qualified Code(s): I50.9 - Heart failure, unspecified Base Code: I50.9 - HEART FAILURE, UNSPECIFIED Comment: - CXR - shows congestion, no recent 2D echo, EF ? - BNP 3,496, Trop 0.015-->0.017 trending, fluid restriction, daily I/Os - ECG: a fib - 80-90s, no acute ST-T wave changes, telemetry monitoring, maintain sats > 92% - needs ASA, statin, BB, currently on ARB (3) Atrial fibrillation Current Visit: Yes Status: Acute Base Code: I48.91 - UNSPECIFIED ATRIAL FIBRILLATION Comment: - ECG: a fib w/ vent rate in 80-90s, no acute ST-T wave changes. - not on BB, anticoagulated with Warfarin 5mg daily, pharmacy to dose. - INR therapeutic at 2.2 -->2.3-->2.9 (4) Diabetes mellitus type 2 in obese Current Visit: Yes Status: Acute Base Code: E11.69 - TYPE 2 DIABETES MELLITUS WITH OTHER SPECIFIED COMPLICATION; E66.9 - OBESITY, UNSPECIFIED Comment: - hold home meds: Glipizide 10mg and Metformin 500mg daily - insulin moderate dose sliding scale, ACHS, Hba1c, Diabetic diet ordered (5) Hypertension Current Visit: Yes Status: Acute Base Code: I10 - ESSENTIAL (PRIMARY) HYPERTENSION Comment: - cont Norvasc 5mg and Losartan 50mg QD (6) Chronic kidney disease Current Visit: Yes Status: Acute Base Code: N18.9 - CHRONIC KIDNEY DISEASE, UNSPECIFIED Comment: - BUN/Cr: 48/1.6n --> 1.4-->1.6 stable - hold metformin, avoid nephrotoxic agents - recheck labs in the am (7) BPH (benign prostatic hyperplasia) Current Visit: Yes Status: Acute Base Code: N40.0 - BENIGN PROSTATIC HYPERPLASIA WITHOUT LOWER URINRY TRACT SYMP Comment: - resume Terazosin 5mg (8) DVT prophylaxis Current Visit: Yes Status: Acute Base Code: [id number] - Comment: - on therapeutic dosing of Warfarin. (9) Code status needs review Current Visit: Yes Status: Acute Base Code: [id number] - Comment: - will address with the patient and family in the morning. - Disposition Disposition: - D/C home tomorrow w/ PT/OT at home and nursing care. PT/OT to follow daily. Results - Labs Result Diagrams: 04/22/17 07:55 04/22/17 07:55 Labs Last 24 Hours: Laboratory Results - last 24 hr 04/21/17 04/21/17 04/22/17 17:00 22:52 07:10 WBC RBC Hgb Hct MCV MCH MCHC RDW Plt Count MPV Gran % Lymphocytes % Monocytes % Eosinophils % Basophils % PT 31.7 H INR 2.90 Sodium Potassium Chloride Carbon Dioxide Anion Gap BUN Creatinine Estimated GFR POC Glucose 273 H 171 H Random Glucose Calcium 04/22/17 04/22/17 04/22/17 07:55 07:55 12:00 WBC 9.5 RBC 3.27 L Hgb 10.5 L Hct 33.7 L MCV 103.1 H MCH 32.1 MCHC 31.2 L RDW 13.0 Plt Count 267 MPV 8.9 Gran % 68.5 Lymphocytes % 15.8 L Monocytes % 12.9 H Eosinophils % 2.5 Basophils % 0.3 PT INR Sodium 141 Potassium 4.5 Chloride 102 Carbon Dioxide 29.0 Anion Gap 10.0 BUN 46 H Creatinine 1.6 H Estimated GFR 44 POC Glucose 259 H Random Glucose 175 H Calcium 8.3 L DVT/PE Assessment - Risk for VTE Risk for VTE: No Risk Level: High Risk Assessment Date: 04/20/17 Risk Assessment Time: 16:13 VTE Orders Placed or Will Be Placed: Yes - Active Medicaitons Current Medications: Current Medications Acetaminophen (Tylenol 500mg Tab) 500 mg PO Q6H PRN PRN Reason: PAIN/TEMP Amlodipine Besylate (Norvasc) 5 mg PO DAILYWM [facility] Last Admin: 04/22/17 10:38 Dose: 5 mg Citalopram Hydrobromide (Celexa) 20 mg PO DAILYWM [facility] Last Admin: 04/22/17 10:36 Dose: 20 mg Furosemide (Lasix) 40 mg PO DAILY [facility] Last Admin: 04/22/17 13:13 Dose: 40 mg Glipizide (Glucotrol) 10 mg PO DAILYWM [facility] Last Admin: 04/22/17 10:37 Dose: 10 mg Insulin Aspart (Novolog Flexpen) 1 unit SQ TIDINS [facility] PRN Reason: Protocol Last Admin: 04/22/17 12:09 Dose: 12 unit Losartan Potassium (Cozaar) 50 mg PO 1730 [facility] Last Admin: 04/21/17 18:09 Dose: 50 mg Terazosin HCl (Hytrin) 5 mg PO 1730 [facility] Last Admin: 04/21/17 18:09 Dose: 5 mg Warfarin Sodium (Coumadin) 5 mg PO DAILYWM [facility] Last Admin: 04/22/17 10:37 Dose: 5 mg AMI Plan - Labs Result Diagrams: 04/22/17 07:55 04/22/17 07:55
[2017-04-22] MEDS ORDERED: PNEUM 13-VAL/PF 0.5 ML IM ONE (14:44)
--- NOTE | 2017-04-22 14:44 | Physical Therapy Tx Note ---
Physical Therapy Tx Note - Treatment Note Tolerated: Good Total Time Spent With Patient: 40 Physical Therapy Tx Note: Detail (Pt up in chair upon arrival, awake/alert. Required coaxing to participate in therapy, preferred to "sit here relaxing". Performed 10 reps each B of hip flexion, abduction w/manual resistance, adduction w/pillow, heel slides, long arc quads, heel and toes raises in sitting. Agreed to walk from bedside chair to doorway w/front wheeled walker, and CGA. Consistently winded/short of breath with exercise and with ambulation. Returned to bedside chair. Independent w/sit<>stand transfers. Bedside table placed in front of pt, call light in reach. Nrsg was asked if patient could have fresh water, small cup of ice water provided. Discussed plans for home therapy; pt agreeable, but wants to be able to "get settled; doesn't want to be pushed".) Physical Therapy Problem List: Detail (1) Decreased balance in both sitting and standing 2) Decreased LE strength 3) Decreased ability to complete sustained physical activity 4) Supervision with ambulation with assistive device.) Physical Therapy Goals: 1) The patient will ambulate independently with use of assistive device a distance of 50 feet plus. 2) Increase LE strength 1/3 muscle grade. 3) Improve balance to Fair level, so the patient is able to complete functional activities without LOB. Prognosis: Good Physical Therapy Plan: PT daily M-F for gait training, balance exercises, LE strengthening exercises.
[2017-04-22] MEDS: TERAZOSIN HCL 1 MG CAPSULE PO SCH (17:39)
[2017-04-22] MEDS: LOSARTAN POTASSIUM 25 MG TABLET PO SCH (17:40)
[2017-04-23] MEDS: NOVOLOG FLEXPEN (INSULIN ASPART) 100 UNITS/ML SQ SCH ×3 (02:24→12:27)
[2017-04-23] MEDS: WARFARIN 5 MG TAB PO SCH (08:08)
[2017-04-23] MEDS: AMLODIPINE BESYLATE 5MG TAB PO SCH (08:08)
[2017-04-23] MEDS: CITALOPRAM 20 MG TABLET PO SCH (08:08)
[2017-04-23] MEDS: GLIPIZIDE 5 MG TABLET PO SCH (08:08)
[2017-04-23] MEDS: FUROSEMIDE 40 MG TABLET PO SCH (09:58)
--- NOTE | 2017-04-23 11:09 | Discharge Summary ---
Providers Date of admission: 04/20/17 15:12 Attending physician: Ramon Corado Primary care physician: ASHKAN PLASCENCIA M.D. Physical Exam - Vital Signs Vital Signs: Vital Signs - Last 24 Hrs Temp Pulse Pulse Resp BP Pulse Ox 04/23/17 09:00 20 04/23/17 08:00 97.7 F 93 H 18 115/55 94 L 04/23/17 04:00 97.9 F 83 20 125/59 95 04/23/17 00:00 93 H 20 111/65 94 L 04/22/17 21:19 16 95 04/22/17 21:00 85 04/22/17 20:00 98.0 F 86 20 107/69 93 L 04/22/17 16:00 98.0 F 87 18 138/75 98 04/22/17 12:00 97.8 F 81 18 124/70 93 L - General General Appearance: Alert, Cooperative, No acute distress Limitations: No limitations - Head Head exam: Atraumatic, Normocephalic, Normal inspection - Eye Eye exam: Normal appearance, PERRL - ENT Throat exam: Normal inspection. negative: Tonsillar erythema, Tonsillar exudate - Neck Neck exam: Normal inspection, Full ROM. negative: Tenderness - Respiratory Respiratory exam: Rhonchi (at the bases.). negative: Normal lung sounds bilaterally, Accessory muscle use, Respiratory distress - Cardiovascular Cardiovascular Exam: Normal heart sounds, Irregular rhythm. negative: Regular rate, Normal rhythm, Systolic murmur Peripheral Pulses: 0: Dorsalis Pedis (R), Dorsalis Pedis (L), 2+: Radial (R), Radial (L) - GI/Abdominal GI/Abdominal exam: Soft, Normal bowel sounds. negative: Tenderness - Extremities Extremities exam: Pedal edema (3+ bilaterally.). negative: Normal inspection - Neurological Neurological exam: Alert, CN II-XII intact, Oriented X3. negative: Motor sensory deficit - Psychiatric Psychiatric exam: Normal affect, Normal mood - Skin Skin exam: Other (dressing over skin breakdown on sacral/coccyx) Hospitalization - Hospitalization Admission Diagnosis: 1. Congestive Heart Failure - Problem List/Discharge Diagnosis (1) Edema Current Visit: Yes Status: Acute Base Code: R60.9 - EDEMA, UNSPECIFIED Comment: - bilateral lower ext edema, pitting +3, resulting in debility - improving - Lasix 60mg changedto LAsix 40mg PO QD - elevate legs, ambulate with assistance (2) Congestive heart failure Current Visit: Yes Status: Acute Discharge Diagnosis: Congestive heart failure type: unspecified congestive heart failure type Congestive heart failure chronicity: unspecified congestive heart failure chronicity Qualified Code(s): I50.9 - Heart failure, unspecified Base Code: I50.9 - HEART FAILURE, UNSPECIFIED Comment: - CXR - shows congestion, no recent 2D echo, EF ? - BNP 3,496, Trop 0.015-->0.017 trending, fluid restriction, daily I/Os - ECG: a fib - 80-90s, no acute ST-T wave changes, telemetry monitoring, maintain sats > 92% - needs ASA, statin, BB, currently on ARB (3) Atrial fibrillation Current Visit: Yes Status: Acute Base Code: I48.91 - UNSPECIFIED ATRIAL FIBRILLATION Comment: - ECG: a fib w/ vent rate in 80-90s, no acute ST-T wave changes. - not on BB, anticoagulated with Warfarin 5mg daily, pharmacy to dose. - INR therapeutic at 2.2 -->2.3-->2.9 (4) Diabetes mellitus type 2 in obese Current Visit: Yes Status: Acute Base Code: E11.69 - TYPE 2 DIABETES MELLITUS WITH OTHER SPECIFIED COMPLICATION; E66.9 - OBESITY, UNSPECIFIED Comment: - hold home meds: Glipizide 10mg and Metformin 500mg daily - insulin moderate dose sliding scale, ACHS, Hba1c, Diabetic diet ordered (5) Hypertension Current Visit: Yes Status: Acute Base Code: I10 - ESSENTIAL (PRIMARY) HYPERTENSION Comment: - cont Norvasc 5mg and Losartan 50mg QD (6) Chronic kidney disease Current Visit: Yes Status: Acute Base Code: N18.9 - CHRONIC KIDNEY DISEASE, UNSPECIFIED Comment: - BUN/Cr: 48/1.6n --> 1.4-->1.6 stable - hold metformin, avoid nephrotoxic agents - recheck labs in the am (7) BPH (benign prostatic hyperplasia) Current Visit: Yes Status: Acute Base Code: N40.0 - BENIGN PROSTATIC HYPERPLASIA WITHOUT LOWER URINRY TRACT SYMP Comment: - resume Terazosin 5mg (8) DVT prophylaxis Current Visit: Yes Status: Acute Base Code: [id number] - Comment: - on therapeutic dosing of Warfarin. (9) Code status needs review Current Visit: Yes Status: Acute Base Code: [id number] - Comment: - will address with the patient and family in the morning. - Disposition - D/C home tomorrow w/ PT/OT at home and nursing care. PT/OT to follow daily. - Hospitalization Course Abnormal Labs: Abnormal Lab Results 04/20/17 04/20/17 04/21/17 Range/Units 17:27 20:55 04:55 RBC (4.40-5.70) M/uL Hgb (14.0-18.0) gm/dl Hct (42.0-52.0) % MCV (81-97) fl MCHC (32-36) g/dl Lymphocytes % (16-45) % Monocytes % (0-9) % PT 25.4 H (9.5-12.1) SECONDS BUN (8-23) mg/dL Creatinine (0.7-1.2) mg/dL POC Glucose 226 H (70-110) mg/dL Random Glucose (74-109) mg/dL Hemoglobin A1c (4.0-6.00) % Calcium (8.8-10.2) mg/dL Troponin T 0.015 H (0-0.010) ng/mL 04/21/17 04/21/17 04/21/17 Range/Units 05:00 05:00 05:00 RBC 3.24 L (4.40-5.70) M/uL Hgb 10.5 L (14.0-18.0) gm/dl Hct 33.3 L (42.0-52.0) % MCV 102.8 H (81-97) fl MCHC 31.5 L (32-36) g/dl Lymphocytes % 9.7 L (16-45) % Monocytes % 11.2 H (0-9) % PT (9.5-12.1) SECONDS BUN 43 H (8-23) mg/dL Creatinine 1.4 H (0.7-1.2) mg/dL POC Glucose (70-110) mg/dL Random Glucose 188 H (74-109) mg/dL Hemoglobin A1c (4.0-6.00) % Calcium 8.5 L (8.8-10.2) mg/dL Troponin T 0.017 H (0-0.010) ng/mL 04/21/17 04/21/17 04/21/17 Range/Units 05:00 11:30 17:00 RBC (4.40-5.70) M/uL Hgb (14.0-18.0) gm/dl Hct (42.0-52.0) % MCV (81-97) fl MCHC (32-36) g/dl Lymphocytes % (16-45) % Monocytes % (0-9) % PT (9.5-12.1) SECONDS BUN (8-23) mg/dL Creatinine (0.7-1.2) mg/dL POC Glucose 203 H 273 H (70-110) mg/dL Random Glucose (74-109) mg/dL Hemoglobin A1c 8.90 H (4.0-6.00) % Calcium (8.8-10.2) mg/dL Troponin T (0-0.010) ng/mL 04/21/17 04/22/17 04/22/17 Range/Units 22:52 07:10 07:55 RBC 3.27 L (4.40-5.70) M/uL Hgb 10.5 L (14.0-18.0) gm/dl Hct 33.7 L (42.0-52.0) % MCV 103.1 H (81-97) fl MCHC 31.2 L (32-36) g/dl Lymphocytes % 15.8 L (16-45) % Monocytes % 12.9 H (0-9) % PT 31.7 H (9.5-12.1) SECONDS BUN (8-23) mg/dL Creatinine (0.7-1.2) mg/dL POC Glucose 171 H (70-110) mg/dL Random Glucose (74-109) mg/dL Hemoglobin A1c (4.0-6.00) % Calcium (8.8-10.2) mg/dL Troponin T (0-0.010) ng/mL 04/22/17 04/22/17 04/22/17 Range/Units 07:55 12:00 16:45 RBC (4.40-5.70) M/uL Hgb (14.0-18.0) gm/dl Hct (42.0-52.0) % MCV (81-97) fl MCHC (32-36) g/dl Lymphocytes % (16-45) % Monocytes % (0-9) % PT (9.5-12.1) SECONDS BUN 46 H (8-23) mg/dL Creatinine 1.6 H (0.7-1.2) mg/dL POC Glucose 259 H 143 H (70-110) mg/dL Random Glucose 175 H (74-109) mg/dL Hemoglobin A1c (4.0-6.00) % Calcium 8.3 L (8.8-10.2) mg/dL Troponin T (0-0.010) ng/mL 04/23/17 Range/Units 03:15 RBC (4.40-5.70) M/uL Hgb (14.0-18.0) gm/dl Hct (42.0-52.0) % MCV (81-97) fl MCHC (32-36) g/dl Lymphocytes % (16-45) % Monocytes % (0-9) % PT (9.5-12.1) SECONDS BUN (8-23) mg/dL Creatinine (0.7-1.2) mg/dL POC Glucose 263 H (70-110) mg/dL Random Glucose (74-109) mg/dL Hemoglobin A1c (4.0-6.00) % Calcium (8.8-10.2) mg/dL Troponin T (0-0.010) ng/mL Condition at Discharge: (2) Stable Discharge Medications - Discharge Medications Prescriptions: Furosemide [Lasix] 40 mg PO DAILY #30 tablet Home Medications: Ambulatory Orders Amlodipine Besylate [Norvasc] 5 mg PO QAM 04/20/17 [Last Taken Unknown] Citalopram Hydrobromide [Celexa] 1 mg PO QAM 04/20/17 [Last Taken Unknown] Glipizide 10 mg PO QAM 04/20/17 [Last Taken Unknown] Losartan Potassium 50 mg PO DAILY 04/20/17 [Last Taken Unknown] Metformin HCl 500 mg PO DAILY 04/20/17 [Last Taken Unknown] Multivitamin [Multiple Vitamins] 1 each PO QAM 04/20/17 [Last Taken Unknown] Potassium Chloride 10 meq PO BID 04/20/17 [Last Taken Unknown] Terazosin HCl 5 mg PO DAILY 04/20/17 [Last Taken Unknown] Warfarin Sodium [Coumadin] 5 mg PO DAILY 04/20/17 [Last Taken Unknown] Furosemide [Lasix] 40 mg PO DAILY #30 tablet 04/23/17 [Last Taken Unknown] Discharge Plan - Discharge Instructions Additional Instructions: - Pt has home nursing set up as per . - Follow up in 5-10 at [facility] - Lasix dose changed to 40mg PO daily Quality Measures - Quality Measures Quality Measures: Atrial Fibrillation & Atrial Flutter: Chronic Anticoagulation Therapy, Advance Directives, Documentation of Current Medications in Medical Record, Elder Maltreatment Screen and Follow-Up Plan, Heart Failure, Screening for High Blood Pressure and F/U Documented - Current Medications Quality Measure: Measure #130: Documentation of Current Medications - Blood Pressure Screening Quality Measure: Screening for High Blood Pressure and Follow-Up Documented Blood Pressure Classification: Pre-Hypertensive BP Reading Systolic Measurement: 124 Diastolic Measurement: 84 Screening for High Blood Pressure: < Pre-Hypertensive BP, F/U Documented > [ [id number]] - Atrial Fibrillation and Atrial Flutter Quality Measure: Atrial Fibrillation & Atrial Flutter: Chronic Anticoagulation Therapy CHADS2 Risk Stratification: Age 75 or Greater, Hypertension, Diabetes Mellitus, Heart Failure or Impaired LVSF Risk Stratification Summary: One or more high risk factors OR more than one moderate risk factor exists. [G8972] - Heart Failure (TAMARA/ARB Therapy) Quality Measure: Heart Failure - Heart Failure (Beta-eber Therapy) Quality Measure: Heart Failure - Advance Directives Quality Measure: Measure #47: Care Plan Advance Directives Established: No Advance Directives Information Provided To Patient: No Advance Directives on File: No Power of Clinical Provider Trainer: Yes Power of Clinical Provider Trainer Name: Reyna son and daughter - Elder Abuse Suspicion Index Screening: Elder Abuse Suspicion Index Screening Rely on people for bathing, dressing, shopping, banking, etc: No Prevented from getting food, clothes, medication, etc: No Made to feel shamed or threatened by someone: No Forced to sign papers or use money against will: No Feel afraid, touched in ways not wanted or hurt physically: No Poor eye contact, withdrawn, malnourished, cuts or bruises: No Screening Result: Negative result EASI Reference Information: Kael NAVARRO, Gaby C, Kamla D, [place] Pickett.Development and validation of a tool to assist physicians identification of elder abuse: The Elder Abuse Suspicion Index (EASI ). Journal of Elder Abuse and Neglect, 2008; 20 (3): 276-300. - Elder Maltreatment Screen Quality Measures: Elder Maltreatment Screen and Follow-Up Plan Elder Maltreatment Screen: <Negative, No Follow-Up Plan Required> [G8734]
== END 2017-04-23 13:05 | disposition home health service (06) | DRG 293 ==
LOC: ER 12:00 → MEDSURG 15:12
PROVIDERS: ADMIT Internal Medicine; ATTEND Internal Medicine
DX: I50.9 Heart failure, unspecified (principal); I48.91 Unspecified atrial fibrillation; E11.65 Type 2 diabetes mellitus with hyperglycemia; I10 Essential (primary) hypertension; Z79.4 Long term (current) use of insulin; Z79.01 Long term (current) use of anticoagulants; N18.9 Chronic kidney disease, unspecified; Z79.84 Long term (current) use of oral hypoglycemic drugs; N40.0 Benign prostatic hyperplasia without lower urinary tract symptoms; J45.909 Unspecified asthma, uncomplicated
CPT/HCPCS: 36416; 70450; 71020; 80048; 81001; 82550; 82553; 82948; 83036; 83880; 84484; 85025; 85610; 85730; 90670; 90686; 93005; 93010; 93041; 94761; 96374; 96375; 97110; 97166; 97530; 99223; 99233; 99239; 99285; J1940